=== PATIENT | male | born 1990 | race Caucasian/White ===

== ENCOUNTER 2024-09-23 14:45 | Emergency (ER) | payer OTHER ==
[2024-09-23 15:04] VITALS: PULSE 78
--- NOTE | 2024-09-23 15:25 | ED ---
Lower Extremity Injury HPI - General Chief Complaint: Extremity Injury, Lower Stated Complaint: left ankle pain Time Seen by Provider: 09/23/24 15:23 Source: patient Mode of arrival: ambulatory Limitations: no limitations - History of Present Illness Initial Comments: 34-year-old male presented the ER for evaluation of left ankle injury. Patient states he is currently checking into [facility] for drug rehabilitation. Patient states he injured this ankle about a week ago when walking down a flight of stairs. He denies any paresthesias to left lower extremity. No new injuries. Patient reports mild swelling which is improving. He has not taken anything for discomfort. Patient states [facility] forced him to come to be evaluated. He has no other acute complaints at this time. - Related Data Allergies Allergy/AdvReac Type Severity Reaction Status Date / Time No Known Allergies Allergy Verified 09/23/24 15:04 Review of Systems ROS Statement: Those systems with pertinent positive or pertinent negative responses have been documented in the HPI. ROS Other: All systems not noted in ROS Statement are negative. Past Medical History Past Medical History: No Reported History History of Any Multi-Drug Resistant Organisms: None Reported Past Surgical History: No Surgical Hx Reported Past Psychological History: Anxiety Smoking Status: Current every day smoker Past Alcohol Use History: None Reported Past Drug Use History: Marijuana General Exam Limitations: no limitations General appearance: alert, in no apparent distress Respiratory exam: Present: normal lung sounds bilaterally. Absent: respiratory distress, wheezes, rales, rhonchi, stridor Cardiovascular Exam: Present: regular rate, normal rhythm, normal heart sounds. Absent: systolic murmur, diastolic murmur, rubs, gallop, clicks Extremities exam: Present: full ROM, normal capillary refill (2+ left DP/PT pulse), other (Minimal edema to lateral left malleolus.) Neurological exam: Present: alert, oriented X3, CN II-XII intact Skin exam: Present: warm, dry, intact, normal color. Absent: rash Course Vital Signs 09/23/24 14:59 Temperature 98.2 F Pulse Rate 78 Respiratory 20 Rate Blood Pressure 138/75 O2 Sat by Pulse 99 Oximetry Medical Decision Making - Medical Decision Making Was pt. sent in by a medical professional or institution (, PA, MANAGER DIGITAL AD OPERATIONS, urgent care, hospital, or snf...) When possible be specific @ -[No] Did you speak to anyone other than the patient for history (EMS, parent, family, police, friend...)? What history was obtained from this source @ -[No] Did you review nursing and triage notes (agree or disagree)? Why? @ -[I reviewed and agree with nursing and triage notes] Were old charts reviewed (outside hosp., previous admission, EMS record, old EKG, old radiological studies, urgent care reports/EKG's, snf records)? Report findings @ -[No old charts were reviewed] Differential Diagnosis (chest pain, altered mental status, abdominal pain women, abdominal pain men, vaginal bleeding, weakness, fever, dyspnea, syncope, headache, dizziness, GI bleed, back pain, seizure, CVA, palpatations, mental health, musculoskeletal)? @ -[not applicable] EKG interpreted by me (3pts min.). @ -[As above] X-rays interpreted by me (1pt min.). @ -[None done] CT interpreted by me (1pt min.). @ -[None done] U/S interpreted by me (1pt. min.). @ -[None done] What testing was considered but not performed or refused? (CT, X-rays, U/S, labs)? Why? @ -[None] What meds were considered but not given or refused? Why? @ -[None] Did you discuss the management of the patient with other professionals (professionals i.e. , PA, MANAGER DIGITAL AD OPERATIONS, lab, RT, psych nurse, social work supervisor, training and development assistant, teacher, community resource officer, watch caser)? Give summary @ -[No] Was smoking cessation discussed for >3mins.? @ -[No] Was critical care preformed (if so, how long)? @ -[No] Were there social determinants of health that impacted care today? How? (Homelessness, low income, unemployed, alcoholism, drug addiction, transportation, low edu. Level, literacy, decrease access to med. care, intermediate, rehab)? @ -[No] Was there de-escalation of care discussed even if they declined (Discuss DNR or withdrawal of care, Hospice)? DNR status @ -[No] What co-morbidities impacted this encounter? (DM, HTN, Smoking, COPD, CAD, Cancer, CVA, ARF, Chemo, Hep., AIDS, mental health diagnosis, sleep apnea, morbid obesity)? @ -[None] Was patient admitted / discharged? Hospital course, mention meds given and route, prescriptions, significant lab abnormalities, going to OR and other pertinent info. @ -[hospital course] Undiagnosed new problem with uncertain prognosis? @ -[No] Drug Therapy requiring intensive monitoring for toxicity (Heparin, Nitro, Insulin, Cardizem)? @ -[No] Were any procedures done? @ -[No] Diagnosis/symptom? @ -[default] Acute, or Chronic, or Acute on Chronic? @ -[default] Uncomplicated (without systemic symptoms) or Complicated (systemic symptoms)? @ -[default] Side effects of treatment? @ -[No] Exacerbation, Progression, or Severe Exacerbation? @ -[No] Poses a threat to life or bodily function? How? (Chest pain, [place], [place], pneumonia, PE, COPD, DKA, ARF, appy, cholecystitis, CVA, Diverticulitis, Homicidal, Suicidal, threat to staff... and all critical care pts) @ -[No] Disposition Clinical Impression: Ankle sprain Disposition: HOME SELF-CARE Condition: Stable Instructions (If sedation given, give patient instructions): Ankle Sprain (ED) Additional Instructions: You may take [id number] ibuprofen and Tylenol for pain control outpatient. Follow-up with PCP. Return to the ER for any new or worsening concerns. Is patient prescribed a controlled substance at d/c from ED?: No Referrals: None,Stated [Primary Care Provider] - 1-2 days Time of Disposition: 15:52
--- NOTE | 2024-09-23 15:44 | XR ---
EXAMINATION TYPE: XR foot complete LT, XR ankle complete LT DATE OF EXAM: 09/23/2024 CLINICAL INDICATION: Male, 34 years old with history of rolled ankle, pain after injury. TECHNIQUE: Frontal, lateral, and oblique images of left ankle and foot are obtained. COMPARISON: None FINDINGS: There is no acute fracture/dislocation evident in the left ankle or foot. Ankle mortise sy mmetry is preserved. The joint spaces in the left foot appear within normal limits. The overlying so ft tissue appears unremarkable. IMPRESSION: There is no acute fracture or dislocation in the left ankle or foot. [facility], , 09/23/2024 3:41 PM
[2024-09-23 19:27] VITALS: BP 123/79; RESP 16; TEMP 98.9
== END 2024-09-23 19:27 | disposition home or self-care (01) ==
LOC: EC 14:45
DX: S93.402A Sprain of unspecified ligament of left ankle, initial encounter (principal); F17.200 Nicotine dependence, unspecified, uncomplicated; W10.8XXA Fall (on) (from) other stairs and steps, initial encounter; Y93.01 Activity, walking, marching and hiking
CPT/HCPCS: 99283

== ENCOUNTER 2024-09-24 17:20 | Emergency (ER) | payer OTHER ==
[2024-09-24 17:29] VITALS: TEMP 98
--- NOTE | 2024-09-24 17:36 | ED ---
General Adult HPI - General Chief complaint: Allergic Reaction Stated complaint: Allergic Reaction Time Seen by Provider: 09/24/24 17:25 Source: patient, EMS Mode of arrival: EMS Limitations: no limitations - History of Present Illness Initial comments: Patient presents to the ED by ambulance from [facility] for evaluation. Patient states that he developed a tongue swelling sensation earlier this evening, so he was sent to the ED for evaluation of possible allergic reaction. EMS reports that the patient was given a dose of IM epinephrine, as well as oral Benadryl at [facility] prior to their arrival. Patient states that he has been at [facility] for the past 2 days now for treatment of fentanyl dependence. Patient states that he has had similar symptoms in the past when "coming off of drugs". Patient denies any known new medication or known allergen exposure. Patient denies rash/hives/pruritus. Patient states that his symptoms have improved since he was given IM epinephrine. Patient denies having any tongue swelling sensation at this time. Patient denies any other area of swelling, difficulty breathing, difficulty swallowing, fever or chills, any pain, nausea or vomiting, potation's, dizziness, syncope, or any other symptoms or complaints. - Related Data Previous Rx's Medication Instructions Recorded diphenhydrAMINE [Benadryl] 50 mg PO TID #9 capsule 09/24/24 Allergies Allergy/AdvReac Type Severity Reaction Status Date / Time No Known Allergies Allergy Verified 09/24/24 17:29 Review of Systems ROS Statement: Those systems with pertinent positive or pertinent negative responses have been documented in the HPI. ROS Other: All systems not noted in ROS Statement are negative. Past Medical History Past Medical History: No Reported History History of Any Multi-Drug Resistant Organisms: None Reported Past Surgical History: No Surgical Hx Reported Past Psychological History: Anxiety Smoking Status: Current every day smoker Past Alcohol Use History: None Reported Past Drug Use History: Marijuana General Exam Limitations: no limitations General appearance: alert, in no apparent distress Eye exam: Present: normal appearance, PERRL, EOMI ENT exam: Present: normal oropharynx, mucous membranes moist, other (There is no evidence of oral or pharyngeal swelling or angioedema on examination) Neck exam: Present: other (Trachea is in midline) Respiratory exam: Present: normal lung sounds bilaterally. Absent: respiratory distress, wheezes, rales, rhonchi, stridor Cardiovascular Exam: Present: regular rate, normal rhythm, normal heart sounds, other (Normal radial pulses bilaterally) GI/Abdominal exam: Present: soft. Absent: distended, tenderness, guarding Extremities exam: Absent: tenderness, pedal edema, calf tenderness Neurological exam: Present: alert, oriented X3 Skin exam: Present: warm, dry, intact, normal color. Absent: rash Course Vital Signs 09/24/24 09/24/24 17:24 18:27 Temperature 98 F Pulse Rate 84 84 Respiratory 17 17 Rate Blood Pressure 134/90 118/70 O2 Sat by Pulse 99 99 Oximetry - Reevaluation(s) Reevaluation #1: 09/24/24 19:08 Patient continues to deny having any tongue swelling while in the ED. Patient continues to have no evidence of oral/pharyngeal angioedema on examination. Patient continues to be breathing comfortably with a normal room air oxygen saturation. It is unclear if the patient truly had an allergic reaction or angioedema, as I have not seen any evidence of this since he has been in the ED. Will discharge patient back to [facility] at this time with a prescription for a 3-day course of oral antihistamines to be safe. Patient was counseled about opiate dependence and allergic reactions. He was clearly explained return and follow-up instructions. He was instructed to follow-up closely with his primary care provider. He feels comfortable with this plan. EKG Findings - EKG Comments: EKG Findings:: ED physician interpretation (interpreted by me): Normal sinus rhythm, no ectopy, ventricular rate of 77 bpm, normal OR and QRS intervals, normal QT interval, rightward axis, no ST or T wave abnormality Medical Decision Making - Medical Decision Making Was pt. sent in by a medical professional or institution (, PA, SPEECH COMMUNICATION PROFESSOR, urgent care, hospital, or senior care...) When possible be specific @ -No Did you speak to anyone other than the patient for history (EMS, parent, family, police, friend...)? What history was obtained from this source @ -History was also obtained from EMS. Did you review nursing and triage notes (agree or disagree)? Why? @ -I reviewed and agree with nursing and triage notes Were old charts reviewed (outside hosp., previous admission, EMS record, old EKG, old radiological studies, urgent care reports/EKG's, senior care records)? Report findings @ -No old charts were reviewed Differential Diagnosis (chest pain, altered mental status, abdominal pain women, abdominal pain men, vaginal bleeding, weakness, fever, dyspnea, syncope, headache, dizziness, GI bleed, back pain, seizure, CVA, palpatations, mental health, musculoskeletal)? @ -Allergic reaction, angioedema, anaphylaxis, drug withdrawal, drug dependence, anxiety, this is not meant to be a complete list. EKG interpreted by me (3pts min.). @ -As above X-rays interpreted by me (1pt min.). @ -None done CT interpreted by me (1pt min.). @ -None done U/S interpreted by me (1pt. min.). @ -None done What testing was considered but not performed or refused? (CT, X-rays, U/S, labs)? Why? @ -None What meds were considered but not given or refused? Why? @ -None Did you discuss the management of the patient with other professionals (professionals i.e. , PA, SPEECH COMMUNICATION PROFESSOR, lab, RT, psych nurse, vp digital marketing social media and crm, c4 planner, teacher, correctional officer sergeant, rehabilitation caseworker)? Give summary @ -No Was smoking cessation discussed for >3mins.? @ -No Was critical care preformed (if so, how long)? @ -No Were there social determinants of health that impacted care today? How? (Homelessness, low income, unemployed, alcoholism, drug addiction, transportation, low edu. Level, literacy, decrease access to med. care, care home, rehab)? @ -No Was there de-escalation of care discussed even if they declined (Discuss DNR or withdrawal of care, Hospice)? DNR status @ -No What co-morbidities impacted this encounter? (DM, HTN, Smoking, COPD, CAD, Cancer, CVA, ARF, Chemo, Hep., AIDS, mental health diagnosis, sleep apnea, morbid obesity)? @ -None Was patient admitted / discharged? Hospital course, mention meds given and route, prescriptions, significant lab abnormalities, going to OR and other pertinent info. @ -Patient has no evidence of allergic reaction/angioedema while in the ED. Patient reports that his tongue swelling sensation has resolved, and he denies development of any new symptoms while in the ED. Will discharge patient back to [facility] at this time. Patient feels comfortable with this plan. Undiagnosed new problem with uncertain prognosis? @ -No Drug Therapy requiring intensive monitoring for toxicity (Heparin, Nitro, Insulin, Cardizem)? @ -No Were any procedures done? @ -No Diagnosis/symptom? @ -Opiate dependence Acute, or Chronic, or Acute on Chronic? @ -Chronic Uncomplicated (without systemic symptoms) or Complicated (systemic symptoms)? @ -Default Side effects of treatment? @ -No Exacerbation, Progression, or Severe Exacerbation? @ -No Poses a threat to life or bodily function? How? (Chest pain, [place], [place], pneumonia, PE, COPD, DKA, ARF, appy, cholecystitis, CVA, Diverticulitis, Homicidal, Suicidal, threat to staff... and all critical care pts) @ -No Diagnosis/symptom? @ -Possible allergic reaction Acute, or Chronic, or Acute on Chronic? @ -Acute Uncomplicated (without systemic symptoms) or Complicated (systemic symptoms)? @ -Default Side effects of treatment? @ -None Exacerbation, Progression, or Severe Exacerbation] @ -No Poses a threat to life or bodily function? @ -No Disposition Clinical Impression: Opiate dependence Narrative: Possible allergic reaction Disposition: HOME SELF-CARE Condition: Stable Additional Instructions: Return to the ER immediately should you develop tongue/lip/throat swelling, a fever, feeling dizzy or faint, shortness of breath/trouble breathing, or new or worsening symptoms. Follow-up closely with your primary care provider. Prescriptions: diphenhydrAMINE [Benadryl] 50 mg PO TID #9 capsule Is patient prescribed a controlled substance at d/c from ED?: No Referrals: Nonstaff,Physician [Primary Care Provider] - 1-2 days Time of Disposition: 19:10
[2024-09-24 21:21] VITALS: BP 120/80; PULSE 64; RESP 18
== END 2024-09-24 21:21 | disposition home or self-care (01) ==
LOC: EC 17:20
DX: Z53.9 Procedure and treatment not carried out, unspecified reason (principal)